=== PATIENT | female | born 1950 | race Asian ===

== ENCOUNTER 2017-04-15 19:20 | Outpatient (CLI) | payer MEDICARE, OTHER ==
--- NOTE | 2017-04-15 21:41 | Ultrasound Report ---
EXAM: RIGHT LOWER EXTREMITY VENOUS ULTRASOUND EXAM DATE: 04/15/2017 07:18 PM. CLINICAL HISTORY: EDEMA. COMPARISON: None. TECHNIQUE: Real-time sonographic vascular imaging was performed by the cake winder through the lower extremity utilizing both color-flow and Doppler spectral analysis. Multiple senior sales representative static alexi ges were saved for review. FINDINGS: Common Femoral Vein (CFV): Normal. CFV-GSV Junction: Normal. Profunda Femoral Vein (PFV): Normal. Femoral Vein (FV) Prox: Normal. Femoral Vein (FV) Mid: Normal. Femoral Vein (FV) Dist: Normal. Popliteal Vein: Normal. Posterior Tibial Veins: Normal. Peroneal Veins: Normal. Contralateral Side CFV: Normal. Other: None. IMPRESSION: No evidence for deep venous thrombosis. [facility] Referring Provider Line: [phone] SITE ID: [id number]
== END 2017-04-15 19:21 | disposition home or self-care (01) ==
LOC: DI 19:20
PROVIDERS: ATTEND Family Medicine
DX: R60.9 Edema, unspecified (principal)

== ENCOUNTER 2017-11-03 11:33 | Outpatient (CLI) | payer MEDICARE, OTHER ==
--- NOTE | 2017-11-04 15:40 | Mammography Report ---
DATE OF SERVICE: 11/03/2017 DIGITAL SCREENING MAMMOGRAM: 11/03/2017 CLINICAL INDICATION: A 66-year-old, for screening. COMPARISON: 09/2016, 08/2015, 07/2014, 07/2013, 07/2012, 07/2011, 06/2010. TECHNIQUE: Routine CC and MLO projections were obtained of the breasts. Bilateral laterally exaggerated craniocaudal views. FINDINGS: The breasts again demonstrate heterogeneously dense fibroglandular parenchyma bilaterally. Coarse and punctate, typically benign calcifications are present. No suspicious masses, clustered microcalcifications, or regions of architectural distortion are identified. IMPRESSION: BENIGN FINDINGS. RECOMMENDATION: ROUTINE ANNUAL SCREENING UNLESS OTHERWISE CLINICALLY INDICATED. BIRADS CATEGORY 2 BENIGN FINDINGS. STANDARD QUALIFYING STATEMENTS: 1. This examination was reviewed with the aid of Computer-Aided Detection (CAD). 2. A negative or benign imaging report should not delay biopsy if clinically suspicious findings are present. Consider surgical consultation if warranted. More than 5% of cancers are not identified by imaging. 3. Dense breasts may obscure an underlying neoplasm. TD: 11/04/2017 16:39
== END 2017-11-03 11:34 | disposition home or self-care (01) ==
LOC: DI 11:33
PROVIDERS: ATTEND Physician Assistant Medical
DX: Z12.31 Encounter for screening mammogram for malignant neoplasm of breast (principal)
CPT/HCPCS: 77067

== ENCOUNTER 2018-02-22 20:27 | Outpatient (CLI) | payer MEDICARE, OTHER ==
--- NOTE | 2018-02-23 09:12 | Ultrasound Report ---
EXAM: LEFT LOWER EXTREMITY VENOUS ULTRASOUND EXAM DATE: 02/22/2018 09:33 PM. CLINICAL HISTORY: Lower extremity edema. COMPARISON: None. TECHNIQUE: Real-time sonographic vascular imaging was performed by the message broker developer through the lower extremity utilizing both color-flow and Doppler spectral analysis. Multiple technical service representative static alexi ges were saved for review. FINDINGS: Common Femoral Vein (CFV): Normal. CFV-GSV Junction: Normal. Profunda Femoral Vein (PFV): Normal. Femoral Vein (FV) Prox: Normal. Femoral Vein (FV) Mid: Normal. Femoral Vein (FV) Dist: Normal. Popliteal Vein: Normal. Posterior Tibial Veins: Normal. Peroneal Veins: Normal. Other: None. IMPRESSION: No sonographic evidence of DVT within the left lower extremity. [facility] Referring Provider Line: [phone] SITE ID: [id number]
== END 2018-02-22 20:28 | disposition home or self-care (01) ==
LOC: DI 20:27
PROVIDERS: ATTEND Physician Assistant Medical
DX: R60.9 Edema, unspecified (principal)

== ENCOUNTER 2018-05-01 11:01 | Outpatient (CLI) | payer MEDICARE, OTHER | END 2018-05-01 11:02 | disposition home or self-care (01) | LOC: DI 11:01 | PROVIDERS: ATTEND Physician Assistant Medical | DX: R60.9 Edema, unspecified (principal) | CPT/HCPCS: 93306 ==

== ENCOUNTER 2018-05-19 10:03 | Outpatient (CLI) | payer MEDICARE, OTHER ==
--- NOTE | 2018-05-19 16:10 | Ultrasound Report ---
Procedure Date: 05/19/2018 Accession Number: [id number] / [id number] Procedure: US - Arterial Visceral Complete CPT Code: FULL RESULT: EXAM: ABDOMEN ULTRASOUND WITH ABDOMINAL VASCULAR ULTRASOUND EXAMINATION. EXAM DATE: 05/19/2018 11:22 AM. CLINICAL HISTORY: Edema. COMPARISON: Abdomen ultrasound 07/12/2014. CT abdomen and pelvis 11/09/2013. TECHNIQUE: Real-time scanning was performed with static images obtained. FINDINGS: Liver: Hepatic echotexture is somewhat coarse with preserved echogenicity. The right lobe measures at least 13 cm. Gallbladder: Surgical absent secondary to transplanted liver. Biliary System: Common bile duct measures 4 mm. No intrahepatic or extrahepatic ductal dilatation. Pancreas: Visualized portion is unremarkable. Kidneys: Right: 10.1 cm longitudinally. Normal. No contour-deforming mass, stones, or hydronephrosis. Left: 8.8 cm longitudinally. Normal. No contour-deforming mass, stones, or hydronephrosis. Spleen: 7.8 cm. Normal in size and echotexture. Aorta and Inferior Vena Cava: Vena cava patent by color Doppler and aorta measures up to 2.3 cm in the upper abdomen. The right, left and middle hepatic veins are patent by color Doppler and appropriately directed with expected venous waveform on spectral Doppler. The hepatic artery is patent throughout its sampled course with expected arterial waveforms and peak systolic velocities in centimeters per second as below: Pre-anastomosis: Visually patent, not measured by spectral Doppler. Anastomosis: Visually patent, not measured by spectral Doppler. Post anastomosis: 97, no tardus parvus waveform or other concerning findings on the tracing. Right hepatic artery: 18 with normal resistive index. Left hepatic artery: 32 with normal resistive index. The portal venous system is patent by color Doppler and without occlusive or nonocclusive thrombus and appropriately directed with expected venous waveforms in the left and right portal vein, main portal vein as well as proximal, mid and distal splenic veins. There is no ascites. IMPRESSION: Expected appearance of posttransplant liver with normal interrogation of hepatic vasculature. [facility]
== END 2018-05-19 10:04 | disposition home or self-care (01) ==
LOC: DI 10:03
PROVIDERS: ATTEND Physician Assistant Medical
DX: R60.9 Edema, unspecified (principal)
CPT/HCPCS: 76700; 93975

== ENCOUNTER 2019-01-28 12:49 | Outpatient (CLI) | payer MEDICARE, OTHER ==
--- NOTE | 2019-01-28 16:04 | Mammography Report ---
Reason: SCREENING MAMMO Procedure Date: 01/28/2019 Accession Number: [id number] / [id number] Procedure: [facility] - Screening Mammo w/Tylor CPT Code: FULL RESULT: EXAM: Screening Mammo w/Tylor DATE: 01/28/2019 1:53 PM CLINICAL HISTORY: Screening encounter. No reported risk factors. TECHNIQUE: (B) - Bilateral CC, laterally exaggerated CC, MLO views were obtained. COMPARISON: 11/03/2017 through 08/01/2014. PARENCHYMAL PATTERN: (A) - The breast(s) demonstrate(s) scattered fibroglandular densities. FINDINGS: There are coarse typically benign calcifications. There are no suspicious masses, calcifications, or areas of distortion. IMPRESSION: Benign findings. BI-RADS category 2. RECOMMENDATION: (ANNUAL) - Recommend routine annual screening mammography. BI-RADS CATEGORY: (2) - Benign Findings. STANDARD QUALIFYING STATEMENTS: 1. This examination was not reviewed with the aid of Computer-Aided Detection (CAD). 2. A negative or benign imaging report should not preclude biopsy if clinically suspicious findings are present. 3. Dense breasts may obscure an underlying neoplasm. 4. This examination was reviewed with the aid of 3D breast imaging (tomosynthesis).
== END 2019-01-28 12:50 | disposition home or self-care (01) ==
LOC: DI 12:49
DX: Z12.31 Encounter for screening mammogram for malignant neoplasm of breast (principal)
CPT/HCPCS: 77063; 77067

== ENCOUNTER 2020-11-05 08:00 | Outpatient (CLI) | payer MEDICARE, OTHER ==
--- NOTE | 2020-11-05 15:23 | XRAY Report ---
PROCEDURE: Knee 3 View RT INDICATIONS: R KNEE PX TECHNIQUE: 3 views of the right knee(s) were acquired. COMPARISON: None. FINDINGS: Bones: No fractures or dislocations. No suspicious bony lesions. Soft tissues: No joint effusion. No suspicious soft tissue calcifications. IMPRESSION: Mild osteoarthritis is seen at the medial compartment of the right knee, with weightbear ing. At the patellofemoral lateral facet. No effusion or loose body. Reviewed by: Marques Cruz MD on 11/05/2020 3:21 PM PST Approved by: Marques Cruz MD on 11/05/2020 3:21 PM PST Station ID: [id number]
== END 2020-11-05 23:59 | disposition home or self-care (01) ==
LOC: DI.N 08:00
PROVIDERS: ATTEND Family Medicine
DX: M17.11 Unilateral primary osteoarthritis, right knee (principal)